=== PATIENT | male | born 1980 | race Caucasian/White ===

== ENCOUNTER 2025-05-04 16:27 | Emergency (ER) | payer OTHER, SELFPAY ==
--- NOTE | ~2025-05-04 | XR_ITS ---
XR tibia fibula RT 2V 05/04/2025 18:03 INDICATION: Right leg pain PROCEDURE: 2 views right tibia/fibula COMPARISON: No prior studies for comparison. FINDINGS: Fracture, dislocation or subluxation is not identified. The soft tissues appear within norm al limits. No foreign bodies are identified. IMPRESSION: 1: NO ACUTE BONE OR JOINT ABNORMALITY IDENTIFIED. Reviewed, dictated and finalized at location A.
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
[2025-05-04 16:27] VITALS: BP 155/103; PULSE 113; RESP 16; TEMP 36.8; O2SAT 95
--- NOTE | 2025-05-04 16:45 | PC.NURSE ---
Pt resting in room on stretcher. No needs at this time. Stretcher locked, call light within reach.
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
[2025-05-04] MEDS: HYDROcodone/acetaminophen (*CRX) 10-325 MG TABLET 1 TAB PO (19:19)
[2025-05-04 19:48] VITALS: BP 140/98; PULSE 99; RESP 16; TEMP 36.9; O2SAT 96
--- NOTE | 2025-05-04 19:51 | PC.NURSE ---
ERP aware of pt's vital signs. No new orders.
== END 2025-05-04 19:51 | disposition home or self-care (01) ==
PROVIDERS: Emergency Provider Emergency Medicine
DX: S80.11XA Contusion of right lower leg, initial encounter (principal); V03.00XA Pedestrian on foot injured in collision with car, pick-up truck or van in nontraffic accident, initial encounter
CPT/HCPCS: 70450; 71046; 72125; 73060; 73590; 99284; A9270